=== PATIENT | male | born 2000 | race Hispanic/Latino ===

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

== ENCOUNTER 2024-08-28 18:25 | Emergency (ER) | payer OTHER ==
[2024-08-28 19:07] LABS: Specific Gravity > 1.030 (1.005-1.030); Sqamous Epithelial <5 /HPF (None Seen); Urine Bacteria <20 /HPF (<20); Urine Bilirubin NEGATIVE (Negative); Urine Blood Negative (Negative); Urine Clarity Clear (Clear); Urine Color Yellow (Yellow); Urine Culture Reflex Order NOT NEEDED; Urine Glucose NEGATIVE (Negative); Urine Ketones NEGATIVE (Negative); Urine Microscopic Reflex YN ORDER UMIC; Urine Mucus Slight /HPF (None Seen); Urine Nitrite NEGATIVE (Negative); Urine Protein TRACE (Negative); Urine RBC <5 /HPF (None Seen); Urine Urobilinogen Normal (Normal); Urine WBC <5 /HPF (<5)
[2024-08-28 19:09] LABS: Barbiturates NEGATIVE (NEGATIVE); Benzodiazepines NEGATIVE (NEGATIVE); Cocaine NEGATIVE (NEGATIVE); METHAMPHETAM NEGATIVE (NEGATIVE); Methadone NEGATIVE (NEGATIVE); Opiates NEGATIVE (NEGATIVE); Phencyclidine NEGATIVE (NEGATIVE); THC Cannibis NEGATIVE (NEGATIVE)
[2024-08-28 19:17] LABS: Absolute Eosinophils 0.2 K/uL (0-0.5); Absolute Lymphocytes (CBC) 1.9 K/uL (0.7-4.9); Absolute Monocytes 0.7 K/uL (0.1-1.3); Absolute Neutrophil 4.5 K/uL (1.8-8.0); Basophils % 0.4 % (0-1.3); Eosinophils % 2.6 % (0-4.4); Hematocrit 48.2 % (39.6-49.0); Hemoglobin 17.3 g/dL (13.6-17.9); Lymphocytes % 25.3 % (15.3-44.8); MCH 31.5 pg (27.0-35.0); MCHC 35.9 g/dL (32.0-36.0); MCV 87.7 fL (80-100); MPV 7.5 fL (7.6-11.3); Monocytes % 9.8 % (3.3-12.3); Neutrophils % 61.9 % (41.7-73.7); Nucleated Red Blood Cells % 0.1 % (0-0); Platelets 309 thou/uL (152-406); Red Cell Distribution Width 13.8 % (12.1-15.2)
[2024-08-28 19:25] LABS: PT Prothrombin Time 11.8 SECONDS (9.4-12.5); PTT, Activated Partial Thromb 33.4 SECONDS (24.3-36.9); Protime INR 1.13
[2024-08-28 19:37] LABS: ALT/SGPT 147 U/L (16-61); AST/SGOT 26 U/L (15-37); Albumin 3.8 g/dL (3.4-5.0); Alkaline Phosphatase 66 U/L (45-117); Anion Gap 10.9 mEq/L (5.0-15.0); BUN Blood Urea Nitrogen 20 mg/dL (7-18); Bicarbonate 22 mEq/L (21-32); Bilirubin Direct 0.2 mg/dL (0-0.2); Bilirubin Indirect, Calculated 0.3 mg/dL (0.2-0.8); Bilirubin Total 0.5 mg/dL (0.2-1.0); Glomerular Filtration Rate 84 ml/min (=/>90); Glucose Level 121 mg/dL (74-106); Potassium 3.9 mEq/L (3.5-5.1); Protein, Total 7.8 g/dL (6.4-8.2); Sodium Level 138 mEq/L (136-145)
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
--- NOTE | 2024-08-28 21:58 | ER ---
Nurse's Notes [facility] Name: Salomon Shirley Age: 24 yrs Sex: Male : 2000 Arrival Date: 08/28/2024 Time: 18:25 Bed 14 Private MD: Diagnosis: Suicidal ideations Presentation: 08/28 18:32 Chief complaint: EMS states: near suicide attempt without a plan. Coronavirus screen: kj2 Client denies travel out of the [place] in the last 14 days. Ebola Screen: No symptoms or risks identified at this time. Initial Sepsis Screen: Does the patient meet any 2 criteria? No. Patient's initial sepsis screen is negative. Does the patient have a suspected source of infection? No. Patient's initial sepsis screen is negative. Risk Assessment: Do you want to hurt yourself or someone else? Patient reports no desire to harm self or others. Onset of symptoms was August 28, 2024. 18:32 Method Of Arrival: EMS: [place] [id number] 18:32 Acuity: JIMY 2 kj2 Triage Assessment: 18:32 General: Appears in no apparent distress. Behavior is calm, cooperative. Pain: Denies kj2 pain. Neuro: Level of Consciousness is awake, alert, obeys commands, Oriented to person, place, time, situation. Cardiovascular: Patient's skin is warm and dry. Respiratory: Airway is patent Respiratory effort is even, unlabored. GI: No signs and/or symptoms were reported involving the gastrointestinal system. : No signs and/or symptoms were reported regarding the genitourinary system. Historical: - Allergies: 18:32 No Known Allergies; kj2 - Home Meds: 18:32 Singulair 10 mg Oral tab 1 tab once daily [Active]; kj2 - PMHx: 18:32 Asthma; Bipolar disorder; kj2 - Immunization history:: Adult Immunizations unknown. - Infectious Disease History:: Denies. - Social history:: Smoking status: Reported history of juuling and/or vaping. Screenin:32 [facility] ED Fall Risk Assessment (Adult) History of falling in the last 3 months, kj2 including since admission No falls in past 3 months (0 pts) Confusion or Disorientation No (0 pts) Intoxicated or Sedated No (0 pts) Impaired Gait No (0 pts) Mobility Assist Device Used No (0 pt) Altered Elimination No (0 pt) Score/Fall Risk Level 0 - 2 = Low Risk Maintained a safe environment, Hourly rounding (assess needs \\T\\ fall precautionary measures) done. Abuse screen: Denies threats or abuse. Denies injuries from another. Nutritional screening: No deficits noted. Tuberculosis screening: No symptoms or risk factors identified. Assessment: 18:32 General: see triage assessment. kj2 19:00 General: Appears in no apparent distress. comfortable, Behavior is calm, cooperative, rg5 appropriate for age, Reports had a suicidal intention. 19:00 Pain: Denies pain. Neuro: Level of Consciousness is awake, alert, obeys commands, rg5 Oriented to person, place, time, situation. Cardiovascular: Denies chest pain, Patient's skin is warm and dry. Rhythm is sinus rhythm. Respiratory: Airway is patent Trachea midline Respiratory effort is even, unlabored, Respiratory pattern is regular, symmetrical. GI: Abdomen is flat, non-distended. : No signs and/or symptoms were reported regarding the genitourinary system. EENT: No deficits noted. Derm: No signs and/or symptoms reported regarding the dermatologic system. Skin is intact, Skin is dry, Skin is normal, Skin temperature is warm. Musculoskeletal: Circulation, motion, and sensation intact. Range of motion: intact in all extremities. 20:00 Reassessment: No changes from previously documented assessment. Patient and/or family rg5 updated on plan of care and expected duration. Pain level reassessed. 21:00 Reassessment: No changes from previously documented assessment. Patient and/or family rg5 updated on plan of care and expected duration. Pain level reassessed. 22:00 Reassessment: No changes from previously documented assessment. Patient and/or family rg5 updated on plan of care and expected duration. Pain level reassessed. 23:49 General: nurse to nurse given with Mary with [facility] [place], [place]. lg3 08/29 00:00 Reassessment: No changes from previously documented assessment. Patient and/or family rg5 updated on plan of care and expected duration. Pain level reassessed. 01:30 Reassessment: No changes from previously documented assessment. Patient and/or family rg5 updated on plan of care and expected duration. Pain level reassessed. Psych: 08/28 18:32 [facility] Suicide Severity Screening: In the past month, have you wished you were kj2 or wished you could go to sleep and not wake up? Patient responds "yes." Based off the client's responses additional C-SSRS screening is required. "In the past month, have you actually had any thoughts of killing yourself?" Patient responds "no." "In your lifetime, have you ever done anything, started to do anything, or prepared to do anything to end your life?" Patient responds "yes." Patient reports suicidal intent within 3 past months. Subjective: Patient's mood is calm. Objective: Patient is cooperative. Interventions: Removed personal items and placed in bag. Patient placed in hospital gown. Searched person for dangerous items. Urine collected and sent for urine drug test. Belonging list filled out. Patient reassessed during use of restraints. Patient is physically safe. Patient's cardiac status is stable. Patient's respirations are even and unlabored. Patient has good circulation in all extremities as indicated by capillary refill < 3 seconds. Patient's ROM assessed and is intact. Patient nutrition and hydration needs will continue to be monitored and addressed. Patient hygiene and elimination needs met. Patient assessed for signs of distress. Patient remains reasonably comfortable at this time. Assisted patient in de-escalation of behavior by removing stimuli causing behavior where possible. Restraints continue to be necessary for patient and staff safety. Safety Checks: Personal items have been removed. Door is open. Pt denies substance abuse. Commitment: Patient will be a voluntary commitment. 19:00 [facility] Suicide Severity Screening: In the past month, have you wished you were lg3 or wished you could go to sleep and not wake up? Patient responds "yes." "In the past month, have you actually had any thoughts of killing yourself?" Patient responds "no." "In your lifetime, have you ever done anything, started to do anything, or prepared to do anything to end your life?" Patient responds "yes." Patient reports suicidal intent within 3 past months. Subjective: Delusions are denied, Hallucinations are denied. Objective: Patient is cooperative, Speech is normal, Affect is appropriate. Safety Checks: Personal items have been removed. Door is open. No visitors are present at this time. Pt denies substance abuse. Vital Signs: 18:32 BP 141 / 74; Pulse 115; Resp 20; Temp 98.6; Pulse Ox 100% ; kj2 19:00 BP 122 / 76; Pulse 100; Resp 18; Temp 98; Pulse Ox 100% on R/A; Pain 0/10; rg5 21:30 BP 127 / 74; Pulse 100; Resp 17; Pulse Ox 98% ; Pain 0/10; rg5 17 00:34 BP 125 / 77; Pulse 87; Resp 18; Temp 97.4; Pulse Ox 100% on R/A; af3 01:30 BP 122 / 75; Pulse 85; Resp 17; Temp 98; Pulse Ox 99% on R/A; Pain 0/10; rg5 19:00 Pain Scale: Adult rg5 21:30 Pain Scale: Adult rg5 01:30 Pain Scale: Adult rg5 ED Course: 08/28 18:32 Patient arrived in ED. ss 18:32 Arm band placed on Patient placed in an exam room, on a stretcher. kj2 18:34 Kiet Hoffman PA is PHCP. cp 18:34 Kiet Harrington MD is Attending Physician. cp 19:00 Report given to EDDIE Gtz. kj2 19:00 Patient has correct armband on for positive identification. Bed in low position. lg3 Valuables See valuables checklist. with security. 19:18 Vanessa Bar, EDDIE is Primary Nurse. kj2 19:21 Triage completed. kj2 20:05 Isaac Rodriguez MD is Attending Physician. cp 23:10 Faxed pt clinicals to the following facilities for placement; [address] 08/29 01:44 Provided Education on: post er care. rg5 01:45 No provider procedures requiring assistance completed. IV discontinued, intact, lg3 bleeding controlled, No redness/swelling at site. Pressure dressing applied. Administered Medications: 00:44 Drug: Acetaminophen PO 1000 mg PO once Route: PO; rg5 02:03 Follow up: Response: No adverse reaction lg3 Medication: 08/28 18:32 VIS not applicable for this client. kj2 Outcome: 21:57 ER care complete, transfer ordered by . cp 08/29 01:45 Patient left the ED. rg5 01:45 Transferred by ground EMS Transfer form completed. Note: [facility] 01:45 Condition: stable 01:45 Instructed on the need for transfer, Demonstrated understanding of instructions, Signatures: Katherin Rodriguez, RN RN ss Kiet Hoffman PA PA cp Able, Lacie, RN RN lg3 Julisa Lara rv1 Ulisses Jarvis, RN RN rg5 Vanessa Bar RN RN kj2 Arminda López3 Corrections: (The following items were deleted from the chart) 01:57 01:53 Patient left the ED. rg5 rg5
[2024-08-29] MEDS ORDERED: ACETAMINOPHEN 500 MG TAB ONE (00:27)
[2024-08-29 03:27] VITALS: BP 125/77; TEMP 97.4; O2SAT 100
--- NOTE | 2024-09-04 13:17 | EKG ---
Test Date: 2024-08-28 Test Time: 19:02:34 Human Resources Recruiter: AF MEASUREMENT RESULTS: Intervals: Rate: 118 NE: 132 QRSD: 88 QT: 318 QTc: 445 [place]: P: 79 NE: 132 QRS: 100 T: 55 INTERPRETIVE STATEMENTS: Sinus tachycardia Right atrial enlargement Borderline ECG Compared to ECG 06/29/2024 04:27:08 Atrial abnormality now present Sinus rhythm no longer present Electronically Signed On 09-04-24 13:06:28 VAT WASHER by Julio Cesar Villafana
== END 2024-08-29 01:53 ==
LOC: ER 18:25
DX: R45.851 Suicidal ideations (principal)
CPT/HCPCS: 36415; 80048; 80076; 80143; 80179; 80307; 81001; 82077; 85025; 85610; 85730; 93005; 99285